=== PATIENT | female | born 1940 | race Caucasian/White ===

== ENCOUNTER 2017-06-04 14:38 | Inpatient (IN) ==
--- NOTE | 2017-06-04 15:59 | Emergency Department Report ---
General Adult HPI - General Chief complaint: Upper Respiratory Infection Stated complaint: Coughing Time Seen by Provider: 06/04/17 14:51 Source: patient, family Mode of arrival: ambulatory Limitations: no limitations - History of Present Illness HPI narrative: 77-year-old female presents to the emergency department with a chief complaint of a productive cough. Patient noted onset of symptoms approximately one week ago. Patient denies any pain or discomfort. Patient was at home when her symptoms began. Symptoms have been persistent in nature since onset. Patient does note that she has a history of pulmonary fibrosis. She does not note any exacerbating or remitting factors other than coughing which seems to increase her symptoms. No other complaints or associated symptoms. - Related Data Home Medications Medication Instructions Recorded Confirmed Etanercept [Enbrel] 50 mg SQ SA #0 06/02/12 06/04/17 Folic Acid 1 mg PO BID #0 06/02/12 06/04/17 Levothyroxine Tab [Synthroid] 125 mcg PO DAILY #0 06/02/12 06/04/17 Tolterodine Tartrate [Detrol LA] 4 mg PO Q2D #0 06/02/12 06/04/17 metHOTREXate sodium [Methotrexate] 2.5 mg PO WE #0 06/02/12 06/04/17 Aspirin [Adult Low Dose Aspirin EC] 81 mg PO DAILY 06/04/17 06/04/17 Azithromycin [Azithromycin] 250 mg PO Q2D 06/04/17 06/04/17 Budesonide/Formoterol Fumarate 2 puff IH BID 06/04/17 06/04/17 [Symbicort 80-4.5 Mcg Inhaler] Calcium Citrate/Vitamin D3 1 tab PO BID 06/04/17 06/04/17 [Citracal + D Maximum Caplet] Celecoxib [Celecoxib] 200 mg PO DAILY 06/04/17 06/04/17 Furosemide [Lasix] 20 mg PO DAILY PRN 06/04/17 06/04/17 Lovastatin [Mevacor] 20 mg PO DAILY 06/04/17 06/04/17 Multivit-Min/FA/Lycopen/Lutein 1 tab PO DAILY 06/04/17 06/04/17 [Centrum Silver Tablet] Nitroglycerin [Nitrostat] 0.4 mg SL Q5MIN3 PRN 06/04/17 06/04/17 Pantoprazole Sodium 20 mg PO BID 06/04/17 06/04/17 Ranitidine [Zantac] 150 mg PO DAILY PRN 06/04/17 06/04/17 Vit C/E/Zn/Coppr/Lutein/Zeaxan 1 cap PO BID 06/04/17 06/04/17 [Preservision Areds 2 Softgel] buPROPion HCl [Bupropion HCl Sr] 150 mg PO DAILY 06/04/17 06/04/17 Allergies Allergy/AdvReac Type Severity Reaction Status Date / Time Gold Salts Allergy Severe Difficulty Verified 06/04/17 15:16 Breathing Review of Systems Constitutional: Denies: fever, chills Eyes: Denies: eye pain, vision change ENT: Denies: ear pain, throat pain Cardiovascular: Denies: chest pain, palpitations Respiratory: Reports: cough, dyspnea Gastrointestinal: Denies: abdominal pain, nausea, vomiting, diarrhea Genitourinary: Denies: urgency, dysuria Musculoskeletal: Denies: back pain, arthralgia Integumentary: Denies: erythema, rash Neurological: Denies: headache, numbness Psychiatric: Denies: anxiety, depression Endocrine: Denies: fatigue, heat or cold intolerance Hematological/Lymphatic: Denies: easy bleeding, easy bruising Allergic/Immunologic: Denies: facial swelling, urticaria PFSH Patient Stated Medical History Cataracts Yes Gastroesophageal Reflux Yes Disease Other Hematologic Yes: HX DVT LEFT LEG Other Musculoskeletal Yes: R. Arthritis Post Menopausal No Now No Surgical History: Multiple orthopedic surgeries. Family History: Reviewed and noncontributory. - Social History Smoking status: Never smoker Substance use type: does not use Alcohol intake frequency: does not drink Physical Exam - Limitations Limitations: no limitations - General General appearance: alert, in no apparent distress - Normal Exams: Head:: Normocephalic without trauma Eyes:: Pupils are PERRLA w/ EOMI, No scleral icterus, irritation, or foreign bodies noted ENMT:: No facial trauma, nasal exudates, pharyngeal erythema, or exudates are noted Dental: No fractured, loose, or missing teeth noted Neck:: Full range of motion, without adenopathy, JVD, bruits or thyromegaly Chest/Respirations:: with good airflow, and symmetry bilaterally (bilateral crackles.) Cardiovascular:: Regular rate and rhythm, without murmur or gallop, Pulses 2+ all extremities, capillary refill, <2 seconds all extremities Abdomen:: Bowel sounds positive, soft, non-tender, non-distended, no hepatosplenomegaly, masses or bruits noted Lymphatic:: No lymphadenopathy, or lymphedema noted Musculoskeletal:: No tenderness, or deformity noted, good range of motion, all extremities Integumentary:: No rashes, hives, or bruising noted, hair and nails, without abnormality Neurological:: Patient is alert, and oriented, cranial nerves, motor/sensory/ cerebellar, exams w/o gross deficits, to observation Psychiatric:: Patient exhibits, appropriate attention, emotion and affect Course Vital Signs Temperature 100.0 F 06/04/17 14:45 Pulse Rate 111 H 06/04/17 14:45 Respiratory Rate 26 H 06/04/17 14:45 Blood Pressure 173/79 H 06/04/17 14:45 Pulse Oximetry 87 L 06/04/17 14:45 Temperature 96.5 F L 06/05/17 07:46 Pulse Rate 79 06/05/17 07:46 Respiratory Rate 20 06/05/17 07:52 Blood Pressure 145/68 H 06/05/17 07:46 Pulse Oximetry 93 06/05/17 07:52 Medical Decision Making - [facility] Narrative Medical decision making narrative: Labs/imaging were discussed in detail with the patient and family and questions are answered. Patient is admitted to the service of the hospitalist Dr. Springer in improved condition. Should and family are in agreement with the current plan of management. Patient is admitted to the hospital in improved condition. Rocephin was ordered at 1734 when sepsis was considered but no source was found. Upon admission to the hospital and my final conversation with the patient she relates that she has suddenly remembered that she did have a DVT in the past. I feel that a CTA of the chest to rule out pulmonary embolism is an appropriate test at this time and have this discussion with Dr. Springer/Katie Arcos. Patient will receive CTA of the chest wall on the way to the floor and the accepting physician will follow the results. Patient and family are in agreement with the current plan of management. Patient is admitted to the hospital in improved condition. No further orders from accepting physician who is in agreement with the current plan of management. - Differential Diagnosis pneumonia, UTI, viral syndrome, metabolic disorder - Lab Data Result diagrams: 06/05/17 04:32 06/05/17 04:32 Lab Results 06/04/17 06/04/17 06/04/17 Range/Units 15:27 15:50 16:12 WBC 6.6 (4.5-11.0) T/MM3 RBC 4.16 (4.00-5.20) M/MM3 Hgb 13.1 (12-16) GM/DL Hct 39.1 (36-46) % MCV 94.0 (80-100) UM3 MCH 31.5 (26-34) UUG MCHC 33.5 (31-37) GM/DL RDW Std Deviation 46.1 (36.9-50.2) FL Plt Count 137 (130-400) T/MM3 MPV 8.9 L (9.4-12.4) UM3 Immature Gran % (Auto) 0.3 (0.0-0.5) % Neut % (Auto) 74.3 H (33-66) % Lymph % (Auto) 12.0 L (23-45) % [place] % (Auto) 9.0 (0-9.0) % Eos % (Auto) 4.1 H (0-4) % Baso % (Auto) 0.3 (0-2) % Neut # 4.9 (1.8-7.7) T/MM3 Lymph # 0.8 L (1-4.8) T/MM3 Brule # 0.6 (0-0.8) T/MM3 Eos # 0.3 (0-0.5) T/MM3 Baso # 0.0 (0-0.2) T/MM3 Abs Immat Gran (auto) 0.02 (0.00-0.03) T/MM3 Turbidity < 20 (0-20) Sodium 140 (134-144) MEQ/L Potassium 3.8 (3.6-5) MEQ/L Chloride 100 (98-107) MEQ/L Carbon Dioxide 29 (22-30) MEQ/L Anion Gap 11 (5-15) MEQ/L BUN 15.0 (7-17) MG/DL Creatinine 0.9 (0.7-1.2) MG/DL GFR Calculation 61 BUN/Creatinine Ratio 17 (6-26) RATIO Glucose 109 (65-110) MG/DL Calculated Osmolality 271 (261-280) MOSM/KG Calcium 9.4 (8.4-10.2) MG/DL Total Bilirubin 0.80 (0.20-1.30) MG/DL Icterus Index < 2 (0-7) AST 29 (14-36) U/L ALT 31 (9-52) U/L Alkaline Phosphatase 94 (38-126) U/L Troponin I < 0.012 (0-0.12) ng/ml B-Natriuretic Peptide 157 (0-175) pg/mL Total Protein 7.9 (6.3-8.2) G/DL Albumin 4.4 (3.5-5.0) G/DL Globulin 3.5 (2.4-3.6) G/DL Albumin/Globulin Ratio 1.3 (1.1-2.2) RATIO Plasma Lactate 1.1 (0.6-2.2) MMOL/L Procalcitonin < 0.05 NG/ML Specimen Hemolysis < 15 (0-25) Ur Collection Type Urine Color (YELLOW) Urine Clarity Urine pH (5.0-8.0) Ur Specific [place] (1.015-1.025) Urine Protein (NEGATIVE) Urine Glucose (UA) (NEGATIVE) Urine Ketones (NEGATIVE) Urine Occult Blood (NEGATIVE) Urine Nitrate (NEGATIVE) Urine Bilirubin (NEGATIVE) Urine Urobilinogen (NORMAL) EU/DL Ur Leukocyte Esterase (NEGATIVE) Urine RBC (0-3) /HPF Urine WBC (0-5) /HPF Ur Squamous Epith Cells Amorphous Sediment Urine Bacteria (NEGATIVE) Ur Culture Indicated? Adenovirus (PCR) (Negative) B.parapertussis DNA PCR (Negative) C. pneumoniae DNA (PCR) (Negative) Coronavirus OC43 (PCR) (Negative) Coronavirus HKU1 (PCR) (Negative) Coronavirus 229E (PCR) (Negative) Coronavirus NL63 (PCR) (Negative) Human Metapneumovirus (Negative) Influenza Type A (PCR) (Negative) Influenza Type B (PCR) (Negative) M. pneumoniae (PCR) (Negative) Parainfluenza 1 (PCR) (Negative) Parainfluenza 2 (PCR) (Negative) Parainfluenza 3 (PCR) (Negative) Parainfluenza 4 (PCR) (Negative) RSV (PCR) (Negative) Entero/Rhino (PCR) (Negative) 06/04/17 06/04/17 06/04/17 Range/Units 16:34 19:31 21:45 WBC (4.5-11.0) T/MM3 RBC (4.00-5.20) M/MM3 Hgb (12-16) GM/DL Hct (36-46) % MCV (80-100) UM3 MCH (26-34) UUG MCHC (31-37) GM/DL RDW Std Deviation (36.9-50.2) FL Plt Count (130-400) T/MM3 MPV (9.4-12.4) UM3 Immature Gran % (Auto) (0.0-0.5) % Neut % (Auto) (33-66) % Lymph % (Auto) (23-45) % Brule % (Auto) (0-9.0) % Eos % (Auto) (0-4) % Baso % (Auto) (0-2) % Neut # (1.8-7.7) T/MM3 Lymph # (1-4.8) T/MM3 Brule # (0-0.8) T/MM3 Eos # (0-0.5) T/MM3 Baso # (0-0.2) T/MM3 Abs Immat Gran (auto) (0.00-0.03) T/MM3 Turbidity (0-20) Sodium (134-144) MEQ/L Potassium (3.6-5) MEQ/L Chloride (98-107) MEQ/L Carbon Dioxide (22-30) MEQ/L Anion Gap (5-15) MEQ/L BUN (7-17) MG/DL Creatinine (0.7-1.2) MG/DL GFR Calculation BUN/Creatinine Ratio (6-26) RATIO Glucose (65-110) MG/DL Calculated Osmolality (261-280) MOSM/KG Calcium (8.4-10.2) MG/DL Total Bilirubin (0.20-1.30) MG/DL Icterus Index (0-7) AST (14-36) U/L ALT (9-52) U/L Alkaline Phosphatase (38-126) U/L Troponin I (0-0.12) ng/ml B-Natriuretic Peptide (0-175) pg/mL Total Protein (6.3-8.2) G/DL Albumin (3.5-5.0) G/DL Globulin (2.4-3.6) G/DL Albumin/Globulin Ratio (1.1-2.2) RATIO Plasma Lactate 0.9 (0.6-2.2) MMOL/L Procalcitonin NG/ML Specimen Hemolysis (0-25) Ur Collection Type Urine, clean catch Urine Color Yellow (YELLOW) Urine Clarity Sl cloudy Urine pH 7.0 (5.0-8.0) Ur Specific [place] 1.015 (1.015-1.025) Urine Protein Negative (NEGATIVE) Urine Glucose (UA) Negative (NEGATIVE) Urine Ketones 3+ A (NEGATIVE) Urine Occult Blood 2+ A (NEGATIVE) Urine Nitrate Negative (NEGATIVE) Urine Bilirubin Negative (NEGATIVE) Urine Urobilinogen 0.2 (NORMAL) EU/DL Ur Leukocyte Esterase Negative (NEGATIVE) Urine RBC 3-5 H (0-3) /HPF Urine WBC 0-1 (0-5) /HPF Ur Squamous Epith Cells 0-5 Amorphous Sediment Many Urine Bacteria Trace H (NEGATIVE) Ur Culture Indicated? Cult not indicated Adenovirus (PCR) Negative (Negative) B.parapertussis DNA PCR Negative (Negative) C. pneumoniae DNA (PCR) Negative (Negative) Coronavirus OC43 (PCR) Negative (Negative) Coronavirus HKU1 (PCR) Negative (Negative) Coronavirus 229E (PCR) Negative (Negative) Coronavirus NL63 (PCR) Negative (Negative) Human Metapneumovirus Negative (Negative) Influenza Type A (PCR) Negative (Negative) Influenza Type B (PCR) Negative (Negative) M. pneumoniae (PCR) Negative (Negative) Parainfluenza 1 (PCR) Negative (Negative) Parainfluenza 2 (PCR) Negative (Negative) Parainfluenza 3 (PCR) Negative (Negative) Parainfluenza 4 (PCR) Negative (Negative) RSV (PCR) Negative (Negative) Entero/Rhino (PCR) Negative (Negative) 06/05/17 06/05/17 Range/Units 04:32 04:32 WBC 4.2 L (4.5-11.0) T/MM3 RBC 4.27 (4.00-5.20) M/MM3 Hgb 13.4 (12-16) GM/DL Hct 40.2 (36-46) % MCV 94.1 (80-100) UM3 MCH 31.4 (26-34) UUG MCHC 33.3 (31-37) GM/DL RDW Std Deviation 45.8 (36.9-50.2) FL Plt Count 160 (130-400) T/MM3 MPV 9.4 (9.4-12.4) UM3 Immature Gran % (Auto) 0.2 (0.0-0.5) % Neut % (Auto) 83.4 H (33-66) % Lymph % (Auto) 14.3 L (23-45) % Brule % (Auto) 1.9 (0-9.0) % Eos % (Auto) 0.0 (0-4) % Baso % (Auto) 0.2 (0-2) % Neut # 3.5 (1.8-7.7) T/MM3 Lymph # 0.6 L (1-4.8) T/MM3 Brule # 0.1 (0-0.8) T/MM3 Eos # 0.0 (0-0.5) T/MM3 Baso # 0.0 (0-0.2) T/MM3 Abs Immat Gran (auto) 0.01 (0.00-0.03) T/MM3 Turbidity < 20 (0-20) Sodium 142 (134-144) MEQ/L Potassium 3.7 (3.6-5) MEQ/L Chloride 103 (98-107) MEQ/L Carbon Dioxide 26 (22-30) MEQ/L Anion Gap 13 (5-15) MEQ/L BUN 13.0 (7-17) MG/DL Creatinine 0.8 (0.7-1.2) MG/DL GFR Calculation 69 BUN/Creatinine Ratio 16 (6-26) RATIO Glucose 166 H (65-110) MG/DL Calculated Osmolality 277 (261-280) MOSM/KG Calcium 9.4 (8.4-10.2) MG/DL Total Bilirubin (0.20-1.30) MG/DL Icterus Index < 2 (0-7) AST (14-36) U/L ALT (9-52) U/L Alkaline Phosphatase (38-126) U/L Troponin I (0-0.12) ng/ml B-Natriuretic Peptide (0-175) pg/mL Total Protein (6.3-8.2) G/DL Albumin (3.5-5.0) G/DL Globulin (2.4-3.6) G/DL Albumin/Globulin Ratio (1.1-2.2) RATIO Plasma Lactate (0.6-2.2) MMOL/L Procalcitonin NG/ML Specimen Hemolysis < 15 (0-25) Ur Collection Type Urine Color (YELLOW) Urine Clarity Urine pH (5.0-8.0) Ur Specific [place] (1.015-1.025) Urine Protein (NEGATIVE) Urine Glucose (UA) (NEGATIVE) Urine Ketones (NEGATIVE) Urine Occult Blood (NEGATIVE) Urine Nitrate (NEGATIVE) Urine Bilirubin (NEGATIVE) Urine Urobilinogen (NORMAL) EU/DL Ur Leukocyte Esterase (NEGATIVE) Urine RBC (0-3) /HPF Urine WBC (0-5) /HPF Ur Squamous Epith Cells Amorphous Sediment Urine Bacteria (NEGATIVE) Ur Culture Indicated? Adenovirus (PCR) (Negative) B.parapertussis DNA PCR (Negative) C. pneumoniae DNA (PCR) (Negative) Coronavirus OC43 (PCR) (Negative) Coronavirus HKU1 (PCR) (Negative) Coronavirus 229E (PCR) (Negative) Coronavirus NL63 (PCR) (Negative) Human Metapneumovirus (Negative) Influenza Type A (PCR) (Negative) Influenza Type B (PCR) (Negative) M. pneumoniae (PCR) (Negative) Parainfluenza 1 (PCR) (Negative) Parainfluenza 2 (PCR) (Negative) Parainfluenza 3 (PCR) (Negative) Parainfluenza 4 (PCR) (Negative) RSV (PCR) (Negative) Entero/Rhino (PCR) (Negative) - Radiology Data Chest x-ray: Findings consistent with pulmonary edema or chronic fibrosis - EKG Data EKG #1 EKG results narrative: Sinus rhythm. 99 bpm. No STEMI. Normal EKG. Disposition Clinical Impression: Tachycardia, Hypoxia Disposition: 02 To [facility] Condition: Improved Time of Disposition: 17:00 (Admit. Dr. Springer. ) - Seen By: physician
--- NOTE | 2017-06-04 15:59 | XRay Report ---
Indication: cough PROCEDURE: XR chest 1V: Encounter: Initial Comparison: June 01, 2012 Findings: Chronic pulmonary abnormalities seen with postoperative change in the right lung. Apical pleural thickening or scarring. Chronically elevated right hemidiaphragm. There is a new small right pleural effusion. No pneumothorax. Heart size and mediastinal contours are stable. There is increasing prominence of the pulmonary vascular markings with [place] B lines present in the left lung. Impression: Findings of moderate pulmonary edema. .
[2017-06-04] MEDS ORDERED: CEFTRIAXONE (ER USE ONLY) 1 GM in NS 100 ML IV ONE (17:34)
[2017-06-04] MEDS ORDERED: SALINE FLUSH 10ml SYRINGE ONE (17:57)
[2017-06-04] MEDS ORDERED: IOHEXOL 350mg/ml 75ml INJECTION ONE (17:57)
[2017-06-04] MEDS ORDERED: NS 100 ML ONE (17:57)
--- NOTE | 2017-06-04 18:04 | History & Physical Report ---
<Katie Arcos V - Last Filed: 06/04/17 18:19> History of Present Illness Date: 06/04/17 Chief complaint: Shortness of breath, hypoxia HPI: Ruthann is a pleasant 77-year-old female who presented to the emergency room today for evaluation of dyspnea and coughing. She reports she has had symptoms intermittently for the past several weeks. Reports she was recently placed on prednisone taper that completed last week due to increased coughing, however, she did not feel that she got any relief. Her symptoms have continued and she has had intermittent episodes of fever and chills. Today, shortness of breath was constant and worse, which brought her to the emergency room for acute evaluation and treatment. His laboratory studies were obtained. CBC was found to be unremarkable, chemistry panel normal. Troponin undetectable, proBNP 157, venous lactate 1.1, pro calcitonin 0.05. A urinalysis is obtained does show 3+ ketones, 2+ blood, 3-5 WBCs with trace bacteria. On arrival, patient was febrile at 100.0, pulse rate 111, respiration rate 26, room air saturations 87%, blood pressure 173/79. Chest x-ray did reveal findings of questionable moderate pulmonary edema versus chronic pulmonary fibrosis. Given her continued hypoxia, accompanied with tachycardia and tachypnea. The hospitalist services were contacted and accepted patient for outpatient admission for further evaluation and treatment. Is expected that her stay will be less than 2 overnights. Patients reports she has had chronic lung problems since expose to gold salts during treatment for RA many years ago. She is chronically on Symbicort. She is also on chronically immunosuppressants including Enbrel, methotrexate, Celebrex. She is also chronically on a azithromycin every 2 days for prevention. We did discuss advanced directives and she does wish to be a full code. Review of Systems Comprehensive ROS: completed and no additional positive findings except those as stated - Constitutional Constitutional: Present: chills, fatigue, fever(s), headache(s) - Respiratory Respiratory: Present: as per HPI, cough, dyspnea, dyspnea on exertion PFSH GERD Rheumatoid arthritis Hypothyroidism Depression Chronic immunosuppressants History of pulmonary emboli Surgical History: Lung Biopsy. multiple hand and foot surgeries related to RA. Left total knee-2011 Family History: Family history is positive for hypertension, SD, CVA - Social History Smoking status: Never smoker Substance use type: does not use Alcohol intake frequency: does not drink Housing: house Household members: spouse Current occupational status: retired (nurse) Current residence: Apartment/Private Home Social history: PCP Dr Annalise Dasilva Medications Home Medications Medication Instructions Recorded Confirmed Type Etanercept [Enbrel] 50 mg SQ SA #0 06/02/12 06/04/17 History Folic Acid 1 mg PO BID #0 06/02/12 06/04/17 History Levothyroxine Tab [Synthroid] 125 mcg PO DAILY #0 06/02/12 06/04/17 History Tolterodine Tartrate [Detrol LA] 4 mg PO Q2D #0 06/02/12 06/04/17 History metHOTREXate sodium [Methotrexate] 2.5 mg PO WE #0 06/02/12 06/04/17 History Aspirin [Adult Low Dose Aspirin EC] 81 mg PO DAILY 06/04/17 06/04/17 History Azithromycin [Azithromycin] 250 mg PO Q2D 06/04/17 06/04/17 History Budesonide/Formoterol Fumarate 2 puff IH BID 06/04/17 06/04/17 History [Symbicort 80-4.5 Mcg Inhaler] Calcium Citrate/Vitamin D3 1 tab PO BID 06/04/17 06/04/17 History [Citracal + D Maximum Caplet] Celecoxib [Celecoxib] 200 mg PO DAILY 06/04/17 06/04/17 History Furosemide [Lasix] 20 mg PO DAILY PRN 06/04/17 06/04/17 History Lovastatin [Mevacor] 20 mg PO DAILY 06/04/17 06/04/17 History Multivit-Min/FA/Lycopen/Lutein 1 tab PO DAILY 06/04/17 06/04/17 History [Centrum Silver Tablet] Nitroglycerin [Nitrostat] 0.4 mg SL Q5MIN3 PRN 06/04/17 06/04/17 History Pantoprazole Sodium 20 mg PO BID 06/04/17 06/04/17 History Ranitidine [Zantac] 150 mg PO DAILY PRN 06/04/17 06/04/17 History Vit C/E/Zn/Coppr/Lutein/Zeaxan 1 cap PO BID 06/04/17 06/04/17 History [Preservision Areds 2 Softgel] buPROPion HCl [Bupropion HCl Sr] 150 mg PO DAILY 06/04/17 06/04/17 History Allergies Allergy/AdvReac Type Severity Reaction Status Date / Time Gold Salts Allergy Severe Difficulty Verified 06/04/17 15:16 Breathing Exam Vital Signs: Temperature 100.6 F H 06/04/17 16:16 Pulse Rate 111 H 06/04/17 14:45 Respiratory Rate 26 H 06/04/17 14:45 Blood Pressure 173/79 H 06/04/17 14:45 Pulse Oximetry 87 L 06/04/17 14:45 Telemetry Rhythm: Sinus Tachycardia Height/Weight/BMI: Weight 71.4 kg - Constitutional Present: mild distress, well nourished, well developed - Routine HEENT Exam Eye: Present: EOMI, PERRL ENT: Present: mucous membranes dry, dentition normal - Routine Respiratory Exam Present: crackles (bilaterally). Absent: wheezes - Routine Cardiovascular Exam Present: RRR, S1, S2, no murmur. Absent: murmur - Routine Abdominal Exam Present: soft, normoactive bowel sounds, non distended. Absent: tenderness - Routine Extremities Exam Present: no edema, full ROM, normal capillary refill - Routine Back/Spine/Pelvis Exam Back/Spine: Present: full ROM - Routine Skin Exam Present: intact, dry, warm - Routine Neurological Exam Present: alert, oriented X3, CN II-XII intact - Routine Psychiatric Exam Present: normal affect Results - Labs CBC & Chem 7: 06/04/17 15:27 06/04/17 15:50 Assessment and Plan (1) SIRS (systemic inflammatory response syndrome) Current visit: Yes Status: Acute Manifestations of sirs include the following- 1. Tachycardia 2. Hypoxia 3. Tachypnea (2) Respiratory failure with hypoxia Current visit: Yes Status: Acute (3) Coughing Current visit: Yes Status: Acute (4) RA (rheumatoid arthritis) Current visit: Yes Status: Chronic (5) Hypothyroidism Current visit: Yes Status: Chronic (6) GERD (gastroesophageal reflux disease) Current visit: Yes Status: Chronic (7) Depression Current visit: Yes Status: Chronic (8) Immunosuppression Current visit: Yes Status: Chronic DVT Prophylaxis: SCD's GI Prophylaxis: Rantidine Resuscitation Status: Full Code Assessment and Plan: Impression SIRS- tachycardia, tachypnea, fever Respiratory failure with hypoxia Coughing Chronic immunosuppression RA Hypothyroidism GERD Depression Plan Admit patient to outpatient observation under the care of Dr. Calvillo for SIRS , respiratory failure with hypoxia and coughing Given continued hypoxia, accompanied with tachycardia and dyspnea. Will obtain a CT scan of the chest to rule out pulmonary emboli and further evaluate pulmonary status. There is question on chest x-ray with her. Patient has pulmonary edema versus chronic fibrosis. She is chronically on immunosuppressants as well as Azithromycin every other day. Will empirically cover patient with IV Rocephin for pulmonary coverage. Will recheck a venous lactate at 1930, blood cultures are currently pending. Will obtain a viral respiratory panel to rule out viral etiology DuoNeb breathing treatments 4 times a day and Pulmicort twice a day. Will encourage use of Acapella. Oxygen to keep saturations greater than 92%. Robitussin and codeine as needed for coughing Will recheck CBC and BMP tomorrow morning to follow blood counts, renal function and electrolytes Will place SCDs to bilateral lower extremity for DVT prophylaxis Will discuss further orders and plan of care with attending, Dr. Calvillo. At time of discharge medical care will return to patient's primary care provider , Dr. Dasilva Hospital Course Summary Disclaimer: The visit summary below is not to be considered part of the above Progress Note. Hospital Course: 06/04/17- Admission Impression SIRS- tachycardia, tachypnea, fever Respiratory failure with hypoxia Coughing Chronic immunosuppression RA Hypothyroidism GERD Depression Plan Admit patient to outpatient observation under the care of Dr. Calvillo for SIRS , respiratory failure with hypoxia and coughing Given continued hypoxia, accompanied with tachycardia and dyspnea. Will obtain a CT scan of the chest to rule out pulmonary emboli and further evaluate pulmonary status. There is question on chest x-ray with her. Patient has pulmonary edema versus chronic fibrosis. She is chronically on immunosuppressants as well as Azithromycin every other day. Will empirically cover patient with IV Rocephin for pulmonary coverage. Will recheck a venous lactate at 1930, blood cultures are currently pending. Will obtain a viral respiratory panel to rule out viral etiology DuoNeb breathing treatments 4 times a day and Pulmicort twice a day. Will encourage use of Acapella. Oxygen to keep saturations greater than 92%. Robitussin and codeine as needed for coughing Will recheck CBC and BMP tomorrow morning to follow blood counts, renal function and electrolytes Will place SCDs to bilateral lower extremity for DVT prophylaxis Will discuss further orders and plan of care with attending, Dr. Calvillo. At time of discharge medical care will return to patient's primary care provider , Dr. Dasilva <Luis Calvillo - Last Filed: 06/04/17 19:13> History of Present Illness Date: 06/04/17 [facility] Patient Stated Medical History Cataracts Yes Gastroesophageal Reflux Yes Disease Other Hematologic Yes: HX DVT LEFT LEG Other Musculoskeletal Yes: R. Arthritis Post Menopausal No Now No Exam Vital Signs: Temperature 99.5 F 06/04/17 18:42 Pulse Rate 99 06/04/17 18:42 Respiratory Rate 18 06/04/17 18:42 Blood Pressure 166/77 H 06/04/17 18:42 Pulse Oximetry 91 06/04/17 18:42 Oxygen Delivery Method Nasal Cannula Oxygen Flow Rate 1 Height/Weight/BMI: Height 1.65 m Weight 69 kg Body Mass Index 25.3 Results - Labs CBC & Chem 7: 06/04/17 15:27 06/04/17 15:50 Assessment and Plan (1) SIRS (systemic inflammatory response syndrome) Current visit: Yes Status: Acute (2) Respiratory failure with hypoxia Current visit: Yes Status: Acute (3) Coughing Current visit: Yes Status: Acute (4) RA (rheumatoid arthritis) Current visit: Yes Status: Chronic (5) Hypothyroidism Current visit: Yes Status: Chronic (6) GERD (gastroesophageal reflux disease) Current visit: Yes Status: Chronic (7) Depression Current visit: Yes Status: Chronic (8) Immunosuppression Current visit: Yes Status: Chronic Assessment and Plan: Have independently interviewed and examined pt. Chart reviewed. Case discussed with ED physician and my ARCHEOLOGIST. Care plan developed with my supervision; agree with above. Increasing cough and congestion for about 1 month. 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 Cough intermittently productive of thick yellow sputum, hard to clear. Not coughing up blood. Notes some nasal drainage. No f/c. No n/v. Has evening reflux since changed PPI. Denies ab pain or diarrhea. Lungs: decreased bilaterally-diffuse fibrotic crackles bilaterally, more pronounced on the right side. Labored breathing despite O2. CV: tachy, regular AB; soft nt/nd MSE: awake alert appropriate Plan: OBS for further evaluation. Will check CTA to exclude PE as causing her tachycardia and cough. Rocephin for pulm coverage. Neb treatments of DuoNeb and budesonide. Acapella to help loosen secretions. Routine Mucinex DM BID with Robitussin/codeine and Ricola prn cough. Supplemental O2 as needed. Continue home medications. SCD for DVT prevention-check CTA to exclude PT. Monitor lab ( recheck BMP in am due to IV contrast). Will recheck CBC in am-possible increase of white count secondary to steroids. Hospital Course Summary Disclaimer: The visit summary below is not to be considered part of the above Progress Note.
[2017-06-04] MEDS ORDERED: GUAIFENESIN/CODEINE 5ml ORAL LIQUID PO PRN (18:21)
[2017-06-04 18:42] VITALS: BMI 25.3
[2017-06-04] MEDS ORDERED: ONDANSETRON 4 MG/2 ML INJECTION IVP PRN (18:45)
[2017-06-04] MEDS ORDERED: TOLTERODINE 4 MG PO SCH (18:45)
[2017-06-04] MEDS ORDERED: ACETAMINOPHEN 325 MG TABLET PO PRN (18:45)
[2017-06-04] MEDS ORDERED: FUROSEMIDE 20 MG TABLET PO PRN (18:45)
[2017-06-04] MEDS ORDERED: ALBUTEROL/IPRATROPIUM 2.5mg-0.5mg/3ml NEB AEROSOL PRN (18:45)
[2017-06-04] MEDS ORDERED: RANITIDINE 150 MG TABLET PO PRN (18:45)
[2017-06-04] MEDS ORDERED: MENTHOL COUGH DROPS (RICOLA) MM PRN (18:48)
[2017-06-04] MEDS: BUDESONIDE INH.SOLN 0.5mg/2ml NEB AEROSOL SCH ×2 (19:49→19:50)
[2017-06-04] MEDS: ALBUTEROL/IPRATROPIUM 2.5mg-0.5mg/3ml NEB AEROSOL SCH (19:49)
[2017-06-04] MEDS: CALCIUM CITRATE 315mg + VIT.D 250units TABLET PO SCH (21:17)
[2017-06-04] MEDS: GUAIFENESIN/D-METHORPHAN 600mg/30mg TABLET PO SCH (21:17)
[2017-06-04] MEDS: MULTI-VIT + MINERAL (Opti-gen) TABLET PO SCH (21:17)
[2017-06-04] MEDS: FOLIC ACID 1 MG TABLET PO SCH (21:18)
[2017-06-04] MEDS: PANTOPRAZOLE 20 MG TABLET PO SCH (21:18)
[2017-06-04] MEDS: ENOXAPARIN 40 MG/0.4 ML INJECTION SQ SCH (21:18)
[2017-06-04] MEDS: METHYLPREDNISOLONE SOD SUCC 125mg/2ml INJECTION IVP SCH (21:18)
[2017-06-05] MEDS: METHYLPREDNISOLONE SOD SUCC 125mg/2ml INJECTION IVP SCH ×5 (03:59→21:33)
[2017-06-05] MEDS: PANTOPRAZOLE 20 MG TABLET PO SCH ×2 (06:46→17:15)
[2017-06-05] MEDS: LEVOTHYROXINE 100 MCG TABLET PO SCH (06:47)
[2017-06-05] MEDS: ALBUTEROL/IPRATROPIUM 2.5mg-0.5mg/3ml NEB AEROSOL SCH ×4 (07:52→20:30)
[2017-06-05] MEDS: BUDESONIDE INH.SOLN 0.5mg/2ml NEB AEROSOL SCH ×2 (07:52→20:31)
--- NOTE | 2017-06-05 08:14 | CT Scan Report ---
Indication: Dyspnea, pulm fibrosis PROCEDURE: CT angio pulm emboli: Encounter: Initial Comparison: June 04, 2017 chest x-ray Technique: Axial CT pulmonary angiographic phase images were performed through the chest after the administration of intravenous contrast. Coronal and Sagittal MIP reconstructed images were created and reviewed. Automated Exposure Control and Iterative Reconstruction dose reducing techniques were utilized. Contrast: Omnipaque 350 52 mL Findings: Pulmonary arteries: Exam is standing ossicle to the subsegmental pulmonary arterial level. No filling defects identified to suggest a pulmonary embolus. Other findings: Diffuse groundglass opacities in the upper lobes and superior segment lower lobes. Right apical pleural thickening and scarring. No pneumothorax. Postoperative changes in the right middle lobe area with surgical sutures. No lobar consolidative pneumonia. Cylindrical bronchiectasis in the right medial base. No pleural effusion. Heart size is normal. No pericardial effusion. Moderate sized hiatal hernia. The upper abdomen shows no acute findings. Impression: 1. No pulmonary embolus. 2. Severe pulmonary fibrosis with possible superimposed mild pulmonary edema versus atypical/viral pneumonia or hypersensitivity pneumonitis. There is a preliminary report by virtual radi[facility]. .
[2017-06-05] MEDS: GUAIFENESIN/D-METHORPHAN 600mg/30mg TABLET PO SCH ×2 (08:57→21:34)
[2017-06-05] MEDS: ENOXAPARIN 40 MG/0.4 ML INJECTION SQ SCH (08:57)
[2017-06-05] MEDS: MULTI-VIT + MINERAL (Opti-gen) TABLET PO SCH ×2 (08:57→21:34)
[2017-06-05] MEDS: CEFTRIAXONE 1,000 MG in NS 100 ML IV SCH (08:57)
[2017-06-05] MEDS: BuPROPion SR 150mg (12HR) TABLET PO SCH (08:58)
[2017-06-05] MEDS: FOLIC ACID 1 MG TABLET PO SCH ×2 (08:58→21:34)
[2017-06-05] MEDS: LOVASTATIN 20 MG TABLET PO SCH (08:58)
[2017-06-05] MEDS: CALCIUM CITRATE 315mg + VIT.D 250units TABLET PO SCH ×2 (08:58→21:34)
[2017-06-05] MEDS: ASPIRIN *EC* 81 MG TABLET PO SCH (08:58)
[2017-06-05] MEDS: CELECOXIB 200 MG CAPSULE PO SCH (08:58)
[2017-06-05] MEDS ORDERED: NON-FORMULARY MEDICATION 1 EACH EACH (Multivit-Min/Fa/Lycopen/Lutein [Centrum Silver Table PO SCH (09:00)
--- NOTE | 2017-06-05 09:54 | Progress Note ---
<Katie Arcos V - Last Filed: 06/05/17 09:48> Subjective: Ruthann is seen this morning while up ambulating to the restroom. She states that overall her coughing is better however she is extremely weak and fatigued. She continues to feel short of breath with exertion. Currently requires 1 liter of maintain saturations. Objective Vital signs: Temperature 96.5 F L 06/05/17 07:46 Pulse Rate 79 06/05/17 07:46 Respiratory Rate 20 06/05/17 07:52 Blood Pressure 145/68 H 06/05/17 07:46 Pulse Oximetry 93 06/05/17 07:52 Oxygen Delivery Method Nasal Cannula Oxygen Flow Rate 1 Height/Weight/BMI: Height 1.65 m Weight 67.2 kg Body Mass Index 25.3 - Constitutional Present: well nourished, well developed - Routine HEENT Exam Eye: Present: EOMI ENT: Present: mucous membranes moist, dentition normal - Routine Respiratory Exam Present: crackles - Routine Cardiovascular Exam Present: RRR, S1, S2. Absent: murmur - Routine Abdominal Exam Present: soft, normoactive bowel sounds, non distended. Absent: tenderness - Routine Extremities Exam Present: normal capillary refill - Routine Back/Spine/Pelvis Exam Back/Spine: Present: full ROM - Routine Skin Exam Present: intact, dry, warm - Routine Neurological Exam Present: alert, oriented X3 CN 3-12 intact - Routine Lymphatic Exam Lymphatic: Absent: adenopathy - Routine Psychiatric Exam Present: normal affect, normal thought process Results - Labs CBC & Chem 7: 06/05/17 04:32 06/05/17 04:32 Assessment and Plan (1) SIRS (systemic inflammatory response syndrome) Current visit: Yes Status: Acute Manifestations of sirs include the following- 1. Tachycardia 2. Hypoxia 3. Tachypnea (2) Respiratory failure with hypoxia Current visit: Yes Status: Acute (3) Coughing Current visit: Yes Status: Acute (4) RA (rheumatoid arthritis) Current visit: Yes Status: Chronic (5) Hypothyroidism Current visit: Yes Status: Chronic (6) GERD (gastroesophageal reflux disease) Current visit: Yes Status: Chronic (7) Depression Current visit: Yes Status: Chronic (8) Immunosuppression Current visit: Yes Status: Chronic Assessment and Plan: 06/05/17 Due to continued respiratory insuf with hypoxia requiring oxygen will change to Inpatinet status. Obtain ambulatory oximetry Continue with Rocephin for antimicrobial coverage. Scheduled breathing treatments. She feels that coughing has improved. Question if she will benefit from home neblizer machine for better chronic management of underlying pulmonary conditions. Routine Mucinex DM BID with Robitussin/codeine as well as Ricola for cough. Consult PT/OT for weakness Will discuss further plan of care with attending Dr Calvillo Sepsis Assessment - Evaluation Sepsis screening result: No Definite Risk Hospital Course Summary Disclaimer: The visit summary below is not to be considered part of the above Progress Note. Hospital Course: 06/04/17- Admission Impression SIRS- tachycardia, tachypnea, fever Respiratory failure with hypoxia Coughing Chronic immunosuppression RA Hypothyroidism GERD Depression Plan Admit patient to outpatient observation under the care of Dr. Calvillo for SIRS , respiratory failure with hypoxia and coughing Given continued hypoxia, accompanied with tachycardia and dyspnea. Will obtain a CT scan of the chest to rule out pulmonary emboli and further evaluate pulmonary status. There is question on chest x-ray with her. Patient has pulmonary edema versus chronic fibrosis. She is chronically on immunosuppressants as well as Azithromycin every other day. Will empirically cover patient with IV Rocephin for pulmonary coverage. Will recheck a venous lactate at 1930, blood cultures are currently pending. Will obtain a viral respiratory panel to rule out viral etiology DuoNeb breathing treatments 4 times a day and Pulmicort twice a day. Will encourage use of Acapella. Oxygen to keep saturations greater than 92%. Robitussin and codeine as needed for coughing Will recheck CBC and BMP tomorrow morning to follow blood counts, renal function and electrolytes Will place SCDs to bilateral lower extremity for DVT prophylaxis Will discuss further orders and plan of care with attending, Dr. Calvillo. At time of discharge medical care will return to patient's primary care provider , Dr. Dasilva 06/05/17 Due to continued respiratory insuf with hypoxia requiring oxygen will change to Inpatinet status. Obtain ambulatory oximetry Continue with Rocephin for antimicrobial coverage. Scheduled breathing treatments. She feels that coughing has improved. Question if she will benefit from home neblizer machine for better chronic management of underlying pulmonary conditions. Routine Mucinex DM BID with Robitussin/codeine as well as Ricola for cough. Consult PT/OT for weakness Will discuss further plan of care with attending Dr Calvillo <Luis Calvillo - Last Filed: 06/05/17 10:33> Objective Vital signs: Temperature 96.5 F L 06/05/17 07:46 Pulse Rate 79 06/05/17 07:46 Respiratory Rate 20 06/05/17 07:52 Blood Pressure 145/68 H 06/05/17 07:46 Pulse Oximetry 93 06/05/17 07:52 Results - Labs CBC & Chem 7: 06/05/17 04:32 06/05/17 04:32 Assessment and Plan (1) SIRS (systemic inflammatory response syndrome) Current visit: Yes Status: Acute (2) Respiratory failure with hypoxia Current visit: Yes Status: Acute (3) Coughing Current visit: Yes Status: Acute (4) RA (rheumatoid arthritis) Current visit: Yes Status: Chronic (5) Hypothyroidism Current visit: Yes Status: Chronic (6) GERD (gastroesophageal reflux disease) Current visit: Yes Status: Chronic (7) Depression Current visit: Yes Status: Chronic (8) Immunosuppression Current visit: Yes Status: Chronic DVT Prophylaxis: Lovenox Resuscitation Status: Full Code Assessment and Plan: Have independently interviewed and examined pt. Chart reviewed. Case discussed with my SKI TOW OPERATOR. Care plan developed with my supervision; agree with above. Doing better today. Breathing easier, much less cough. Still some chest congestion. Needing O2 to maintain saturations. Urinating well. Eating better. Mouth dry and feels thirsty. No nausea or ab pain. Strength and stamina decreased. No f/c. Lungs: decreased, coarse fibrotic noises bilaterally. Occasional cough. Breathing comfortably on RA. CV: regular AB: soft nt/nd +BS MSE: awake alert appropriate HEENT: MM dry Plan: Change admission status to inpatient secondary to continued hypoxia. Will continue Rocephin for pulmonary coverage. Will continue with Solu-Medrol at 125mg IV q 6 hours (WBC without increase, but likely will see increase tomorrow. Blood sugar with elevation secondary to steroids.) PT/OT to help increase functional status. Time spent with patient care 25 minutes. Questions answered. Hospital Course Summary Disclaimer: The visit summary below is not to be considered part of the above Progress Note.
[2017-06-05] MEDS: SALINE FLUSH 10ml SYRINGE IVF PRN ×2 (15:51→21:34)
[2017-06-06] MEDS: METHYLPREDNISOLONE SOD SUCC 125mg/2ml INJECTION IVP SCH ×2 (04:07→11:17)
[2017-06-06] MEDS: LEVOTHYROXINE 100 MCG TABLET PO SCH (05:54)
[2017-06-06] MEDS: PANTOPRAZOLE 20 MG TABLET PO SCH (05:54)
[2017-06-06 07:25] VITALS: BP 137/66; TEMP 97.1
[2017-06-06] MEDS: BUDESONIDE INH.SOLN 0.5mg/2ml NEB AEROSOL SCH (07:51)
[2017-06-06] MEDS: ALBUTEROL/IPRATROPIUM 2.5mg-0.5mg/3ml NEB AEROSOL SCH ×2 (07:51→11:46)
[2017-06-06 08:13] VITALS: O2SAT 94
--- NOTE | 2017-06-06 10:12 | Progress Note ---
Subjective: F/U: SIRS, Respiratory failure with hypoxia Doing much better today. Breathing easier-not as winded/SOA. Cough less, non productive. No pain with breathing. Appetite stable. No mouth pain. Strength improving-ambulating more. Urinating well. Feels ready to go home. Objective Vital signs: Temperature 97.1 F 06/06/17 07:22 Pulse Rate 78 06/06/17 07:22 Respiratory Rate 12 06/06/17 07:52 Blood Pressure 137/66 06/06/17 07:22 Pulse Oximetry 94 06/06/17 07:52 Oxygen Delivery Method Room Air Oxygen Flow Rate 0 Height/Weight/BMI: Weight 67.9 kg - Constitutional Present: no acute distress, well nourished, well developed, cooperative - Routine HEENT Exam Head: Present: normocephalic, atraumatic Eye: Present: EOMI, PERRL ENT: Present: mucous membranes moist - Routine Respiratory Exam Present: crackles (Fibrotic ), distant breath sounds, diminished air movement. Absent: respiratory distress - Routine Cardiovascular Exam Present: RRR, no murmur - Routine Extremities Exam Present: no edema, pulses intact. Absent: cyanosis, clubbing - Routine Musculoskeletal Exam Musculoskeletal: Present: no clubbing or cyanosis, normal strength - Routine Skin Exam Present: intact, warm, normal turgor - Routine Neurological Exam Present: alert, oriented X3, CN II-XII intact, vision grossly intact, hearing grossly intact - Routine Psychiatric Exam Present: normal affect, normal thought process, cooperative, good insight, good judgment. Absent: anxious, agitated Results - Labs CBC & Chem 7: 06/06/17 04:44 06/06/17 04:44 Assessment and Plan (1) SIRS (systemic inflammatory response syndrome) Current visit: Yes Status: Resolved Manifestations of sirs include the following- 1. Tachycardia 2. Hypoxia 3. Tachypnea (2) Respiratory failure with hypoxia Current visit: Yes Status: Resolved (3) Coughing Current visit: Yes Status: Acute (4) RA (rheumatoid arthritis) Current visit: Yes Status: Chronic (5) Hypothyroidism Current visit: Yes Status: Chronic (6) GERD (gastroesophageal reflux disease) Current visit: Yes Status: Chronic (7) Depression Current visit: Yes Status: Chronic (8) Immunosuppression Current visit: Yes Status: Chronic DVT Prophylaxis: Lovenox Resuscitation Status: Full Code Assessment and Plan: Impression SIRS- tachycardia, tachypnea, fever - resolved Respiratory failure with hypoxia Coughing Chronic immunosuppression RA Hypothyroidism GERD Depression Plan Will discharge to home. Prednisone 40mg today x1 then 20mg daily for 7 days. Amoxicillin 500mg TID for 5 days. Continue Acapella QID for 1 week, then as needed. F/U with PCP in 1 week. See orders for details. Case discussed with CM and pt/pt's . Time spent with patient care and discharge greater than 35 minutes. Sepsis Assessment - Evaluation Sepsis screening result: No Definite Risk Hospital Course Summary Disclaimer: The visit summary below is not to be considered part of the above Progress Note. Hospital Course: 06/04/17- Admission Impression SIRS- tachycardia, tachypnea, fever Respiratory failure with hypoxia Pulmonary fibrosis Coughing Chronic immunosuppression RA Hypothyroidism GERD Depression Plan Admit patient to outpatient observation under the care of Dr. Calvillo for SIRS , respiratory failure with hypoxia and coughing Given continued hypoxia, accompanied with tachycardia and dyspnea. Will obtain a CT scan of the chest to rule out pulmonary emboli and further evaluate pulmonary status. There is question on chest x-ray with her. Patient has pulmonary edema versus chronic fibrosis. She is chronically on immunosuppressants as well as Azithromycin every other day. Will empirically cover patient with IV Rocephin for pulmonary coverage. Will recheck a venous lactate at 1930, blood cultures are currently pending. Will obtain a viral respiratory panel to rule out viral etiology. DuoNeb breathing treatments 4 times a day and Pulmicort twice a day. Will encourage use of Acapella. Oxygen to keep saturations greater than 92%. Robitussin and codeine as needed for coughing. Will recheck CBC and BMP tomorrow morning to follow blood counts, renal function and electrolytes. Will place SCDs to bilateral lower extremity for DVT prophylaxis and Lovenox. At time of discharge medical care will return to patient's primary care provider , Dr. Dasilva 06/05/17 Due to continued respiratory insufficiency with hypoxia requiring oxygen will change to Inpatient status. CTA without evidence of PE. Viral respiratory panel negative. Obtain ambulatory oximetry Continue with Rocephin for antimicrobial coverage. Scheduled breathing treatments. She feels that coughing has improved. Question if she will benefit from home nebulizer machine for better chronic management of underlying pulmonary conditions. Routine Mucinex DM BID with Robitussin/codeine as well as Ricola for cough. Consult PT/OT for weakness 06/06/17 Will discharge to home. Prednisone 40mg today x1 then 20mg daily for 7 days. Amoxicillin 500mg TID for 5 days. Continue Acapella QID for 1 week, then as needed. F/U with PCP in 1 week. See orders for details.
--- NOTE | 2017-06-06 10:27 | Discharge Summary ---
Discharge Information Date of admission: 06/05/17 09:53 Anticipated date of discharge: 06/06/17 Attending Physician: Luis Calvillo MD Primary care physician: Dr Annalise Gomez Consults: PT/OT - Discharge Diagnosis Discharge Diagnosis: SIRS- tachycardia, tachypnea, fever Respiratory failure with hypoxia Pulmonary fibrosis Associated conditions and complications Coughing Chronic immunosuppression RA Hypothyroidism GERD Depression Steroid induced hyperglycemia - Laboratory Labs: 06/06/17 04:44 06/06/17 04:44 - Radiology Radiology: Date of Exam: 06/04/17 PROCEDURE: CT angio pulm emboli Pulmonary arteries: Exam is standing ossicle to the subsegmental pulmonary arterial level. No filling defects identified to suggest a pulmonary embolus. Other findings: Diffuse groundglass opacities in the upper lobes and superior segment lower lobes. Right apical pleural thickening and scarring. No pneumothorax. Postoperative changes in the right middle lobe area with surgical sutures. No lobar consolidative pneumonia. Cylindrical bronchiectasis in the right medial base. No pleural effusion. Heart size is normal. No pericardial effusion. Moderate sized hiatal hernia. The upper abdomen shows no acute findings. Impression: 1. No pulmonary embolus. 2. Severe pulmonary fibrosis with possible superimposed mild pulmonary edema versus atypical/viral pneumonia or hypersensitivity pneumonitis. History of Present Illness HPI: Ruthann is a pleasant 77-year-old female who presented to the emergency room today for evaluation of dyspnea and coughing. She reports she has had symptoms intermittently for the past several weeks. Reports she was recently placed on prednisone taper that completed last week due to increased coughing, however, she did not feel that she got any relief. Her symptoms have continued and she has had intermittent episodes of fever and chills. Today, shortness of breath was constant and worse, which brought her to the emergency room for acute evaluation and treatment. His laboratory studies were obtained. CBC was found to be unremarkable, chemistry panel normal. Troponin undetectable, proBNP 157, venous lactate 1.1, pro calcitonin 0.05. A urinalysis is obtained does show 3+ ketones, 2+ blood, 3-5 WBCs with trace bacteria. On arrival, patient was febrile at 100.0, pulse rate 111, respiration rate 26, room air saturations 87%, blood pressure 173/79. Chest x-ray did reveal findings of questionable moderate pulmonary edema versus chronic pulmonary fibrosis. Given her continued hypoxia, accompanied with tachycardia and tachypnea. The hospitalist services were contacted and accepted patient for outpatient admission for further evaluation and treatment. Is expected that her stay will be less than 2 overnights. Patients reports she has had chronic lung problems since expose to gold salts during treatment for RA many years ago. She is chronically on Symbicort. She is also on chronically immunosuppressants including Enbrel, methotrexate, Celebrex. She is also chronically on a azithromycin every 2 days for prevention. We did discuss advanced directives and she does wish to be a full code. For complete details of the H&P refer to that document. Objective Vital signs: Temperature 97.1 F 06/06/17 07:22 Pulse Rate 78 06/06/17 07:22 Respiratory Rate 12 06/06/17 07:52 Blood Pressure 137/66 06/06/17 07:22 Pulse Oximetry 94 06/06/17 07:52 Oxygen Delivery Method Room Air Oxygen Flow Rate 0 Height/Weight/BMI: Weight 67.9 kg Hospital Course This is a general summary of the patient's hospital course. For more details refer to the complete medical record. Hospital course: 06/04/17- Admission Impression SIRS- tachycardia, tachypnea, fever Respiratory failure with hypoxia Pulmonary fibrosis Coughing Chronic immunosuppression RA Hypothyroidism GERD Depression Plan Admit patient to outpatient observation under the care of Dr. Calvillo for SIRS , respiratory failure with hypoxia and coughing Given continued hypoxia, accompanied with tachycardia and dyspnea. Will obtain a CT scan of the chest to rule out pulmonary emboli and further evaluate pulmonary status. There is question on chest x-ray with her. Patient has pulmonary edema versus chronic fibrosis. She is chronically on immunosuppressants as well as Azithromycin every other day. Will empirically cover patient with IV Rocephin for pulmonary coverage. Will recheck a venous lactate at 1930, blood cultures are currently pending. Will obtain a viral respiratory panel to rule out viral etiology. DuoNeb breathing treatments 4 times a day and Pulmicort twice a day. Will encourage use of Acapella. Oxygen to keep saturations greater than 92%. Robitussin and codeine as needed for coughing. Will recheck CBC and BMP tomorrow morning to follow blood counts, renal function and electrolytes. Will place SCDs to bilateral lower extremity for DVT prophylaxis and Lovenox. At time of discharge medical care will return to patient's primary care provider , Dr. Gomez 06/05/17 Due to continued respiratory insufficiency with hypoxia requiring oxygen will change to Inpatient status. CTA without evidence of PE. Viral respiratory panel negative. Obtain ambulatory oximetry Continue with Rocephin for antimicrobial coverage. Scheduled breathing treatments. She feels that coughing has improved. Question if she will benefit from home nebulizer machine for better chronic management of underlying pulmonary conditions. Routine Mucinex DM BID with Robitussin/codeine as well as Ricola for cough. Consult PT/OT for weakness 06/06/17 Will discharge to home. Prednisone 40mg today x1 then 20mg daily for 7 days. Amoxicillin 500mg TID for 5 days. Continue Acapella QID for 1 week, then as needed. F/U with PCP in 1 week. See orders for details. Time spent with patient: discharge greater than 30 minutes DVT Prophylaxis: SCD's, Lovenox GI Prophylaxis: Protonix Discharge Plan - Med Rec/Dispo Referrals/Follow Up: annalise gomez [Other] - 1 Week (Hospital F/U. ) [facility] Instructions: Hypoxia (GEN) Prescriptions: New Amoxicillin 500 mg PO TID #15 cap Guaifenesin/Codeine Phosphate [Guaifenesin-Codeine Syrup] 5 ml PO Q4H PRN # 100 ml PRN Reason: Cough /Congestion predniSONE [Prednisone] 20 mg PO DAILY #5 tablet Guaifenesin/Dm [Mucinex Dm] 1 tab PO BID #14 tab.er.12h Continue Etanercept [Enbrel] 50 mg SQ SA #0 Folic Acid 1 mg PO BID #0 Aspirin [Adult Low Dose Aspirin EC] 81 mg PO DAILY Calcium Citrate/Vitamin D3 [Citracal + D Maximum Caplet] 1 tab PO BID Lovastatin [Mevacor] 20 mg PO DAILY Budesonide/Formoterol Fumarate [Symbicort 80-4.5 Mcg Inhaler] 2 puff IH BID Celecoxib 200 mg PO DAILY Multivit-Min/FA/Lycopen/Lutein [Centrum Silver Tablet] 1 tab PO DAILY Nitroglycerin [Nitrostat] 0.4 mg SL Q5MIN3 PRN PRN Reason: Chest Pain Furosemide [Lasix] 20 mg PO DAILY PRN PRN Reason: Prn Orders Pantoprazole Sodium 20 mg PO BID metHOTREXate sodium [Methotrexate] 2.5 mg PO WE #0 Levothyroxine Tab [Synthroid] 125 mcg PO DAILY #0 Tolterodine Tartrate [Detrol LA] 4 mg PO Q2D #0 Azithromycin 250 mg PO Q2D Vit C/E/Zn/Coppr/Lutein/Zeaxan [Preservision Areds 2 Softgel] 1 cap PO BID buPROPion HCl [Bupropion HCl Sr] 150 mg PO DAILY Ranitidine [Zantac] 150 mg PO DAILY PRN PRN Reason: Prn Orders Discharge Instructions/Outpatient Orders: Final Provider Discharge Instructions Location: Determined By Patient - Disposition 01 Discharged Home, Self-Care - Attestation Attestation Narrative: 06/06/17 10:54 I have independently interviewed and examined pt. Please see my progress note from today for details. Patient medically stable for discharge to home.
[2017-06-06] MEDS ORDERED: PredniSONE 20 MG TABLET PO ONE (10:41)
[2017-06-06] MEDS: BuPROPion SR 150mg (12HR) TABLET PO SCH (10:58)
[2017-06-06] MEDS: CELECOXIB 200 MG CAPSULE PO SCH (10:58)
[2017-06-06] MEDS: CALCIUM CITRATE 315mg + VIT.D 250units TABLET PO SCH (10:58)
[2017-06-06] MEDS: GUAIFENESIN/D-METHORPHAN 600mg/30mg TABLET PO SCH (10:58)
[2017-06-06] MEDS: ASPIRIN *EC* 81 MG TABLET PO SCH (10:58)
[2017-06-06] MEDS: LOVASTATIN 20 MG TABLET PO SCH (10:58)
[2017-06-06] MEDS: MULTI-VIT + MINERAL (Opti-gen) TABLET PO SCH (10:58)
[2017-06-06] MEDS: FOLIC ACID 1 MG TABLET PO SCH (10:59)
[2017-06-06] MEDS: ENOXAPARIN 40 MG/0.4 ML INJECTION SQ SCH (11:00)
[2017-06-06] MEDS: CEFTRIAXONE 1,000 MG in NS 100 ML IV SCH (11:02)
[2017-06-06 11:55] VITALS: RESP 14
[2017-06-06 14:05] VITALS: PULSE 82
== END 2017-06-06 13:20 | disposition home or self-care (01) | DRG 189 ==
LOC: ED 14:38 → MED 14:38
PROVIDERS: ADMIT Hospitalist; ATTEND Hospitalist